=== PATIENT | female | born 1950 | race Asian ===

== ENCOUNTER 2025-07-29 15:45 | Emergency (ER) | payer OTHER ==
[~2025-07-29] VITALS: Ht 162.6 cm; Wt 97.8 kg
--- NOTE | 2025-07-29 16:17 | ECG ---
[facility] Test Date: 2025-07-29 Test Time: 15:57:51 Pat Name: ALEYDA REINA Department: Room: Gender: F Dye Blender: : 1950 Requested By: EMERGENCY EMERGENCY Order Number: [id number] Reading MD: Chau Pang Measurements Intervals [place] Rate: 90 P: 50 TN: 186 QRS: -39 QRSD: 89 T: 52 QT: 381 QTc: 467 Interpretive Statements Sinus rhythm Low voltage, precordial leads Probable left ventricular hypertrophy Baseline wander in lead(s) V4 Electronically Signed On 08-02-2025 10:54:38 PST by Chau Pang Please click the below link to view image of tracing.
--- NOTE | 2025-07-29 16:38 | ED.PDOC ---
History of present illness HPI Comments This is a 74 year old female BIB grandson presenting to the ED with chief complaint of hyperglycemia. Grandson reports patient's glucometer read "High" when used today at home, showing 507 in triage. Grandbeto relays that the patient's blood glucose has been running higher lately with yesterday's level being in the 300s. Patient states she is currently taking Glipizide and another oral diabetes medication, however, she had also been prescribed Insulin by her doctor that she has not taken due to not having any subcutaneous needles to use it. Patient notes she has had an unrelated cough for the past 2 weeks as well. Patient denies any SOB, chest pain, abdominal pain, nausea, vomiting, diarrhea, headache, or dizziness. Chief Complaint: Hyperglycemia Time Seen by MD: 16:35 History of present illness: Nurses Notes, Medications, Allergies Allergies: Coded Allergies: Lisinopril (Verified Allergy, Unknown, 07/29/25) Information Source: Patient, Relative (GrandChild) Mode of Arrival: Ambulatory Timing: Days Duration: Since onset Prehospital treatment: None [place]: None History of: Diabetes, Insulin use, Oral hypoglycemic use Past Medical History PAST MEDICAL HISTORY: DM, HTN Surgical History: Denies all surgeries JEWELRY SALESPERSON History: Denies all JEWELRY SALESPERSON Hx Family History Family History: Reviewed,noncontributory to illness Social History Smoker: Non-Smoker Alcohol: Denies ETOH Use Drugs: Denies Drug Use Lives In: Home Constitutional: denies: chills, diaphoresis, fatigue, fever, malaise, sweats, weakness, others EENTM: denies: blurred vision, double vision, ear bleeding, ear discharge, ear drainage, ear pain, ear ringing, eye pain, eye redness, hearing loss, mouth pain, mouth swelling, nasal discharge, nose bleeding, nose congestion, nose pain, photophobia, tearing, throat pain, throat swelling, voice changes, others Respiratory: reports: cough; denies: hemoptysis, orthopnea, SOB at rest, shortness of breath, SOB with excertion, stridor, wheezing, others Cardiovascular: denies: chest pain, dizzy spells, diaphoresis, Dyspnea on exert ion, edema, irregular heart beat, left arm pain, lightheadedness, palpitations, PND, syncope, others Gastrointestinal: denies: abdomen distended, abdominal pain, blood streaked bowels, constipated, diarrhea, dysphagia, difficulty swallowing, hematemesis, melena, nausea, poor appetite, poor fluid intake, rectal bleeding, rectal pain, vomiting, others Genitourinary: denies: abnormal vagina bleeding, burning, dyspareunia, dysuria, flank pain, frequency, hematuria, incontinence, pain, , vagina discharge, urgency, others Neurological: denies: dizziness, fainting, headache, left sided numbness, left sided weakness, numbness, paresthesia, pre-existing deficit, right sided numbness, right sided weakness, seizure, speech problems, tingling, tremors, weakness, others Musculoskeletal: denies: back pain, gout, joint pain, joint swelling, muscle pain, muscle stiffness, neck pain, others Integumetry: denies: bruises, change in color, change in hair/nails, dryness, laceration, lesions, lumps, rash, wounds, others Allergic/Immunocompromised: denies: Difficulty Healing, Frequent Infections, Hives, Itching, others Hematologic/Lymphatic: denies: anemia, blood clots, easy bleeding, easy bruising, swollen glands, others Endocrine: denies: excessive hunger, excessive sweating, excessive thirst, excessive urination, flushing, intolerance to cold, intolerance to heat, unexplained weight gain, unexplained weight loss, others Psychiatric: denies: anxiety, bipolar disorder, depression, hopeless, panic disorder, schizophrenia, sleepless, suicidal, others All Other Systems: Reviewed and Negative Physical Exam General Appearance: No Apparent Distress, Normal HEENT: Normal ENT Inspection, Pharynx Normal, TMs Normal Neck: Full Range of Motion, Non-Tender, Normal, Normal Inspection Respiratory: Chest Non-Tender, Lungs Clear, No Accessory Muscle Use, No Respiratory Distress, Normal Breath Sounds, Other (Frequent cough noted) Cardiovascular: No Edema, No JVD, No Murmur, No Gallop, Normal Peripheral Pulses, Regular Rate/Rhythm Breast Exam: Deferred Gastrointestinal: No Organomegaly, Non Tender, No Pulsatile Mass, Normal Bowel Sounds, Soft Genitalia: Deferred Pelvic: Deferred Rectal: Deferred Extremities: No calf tenderness, Normal capillary refill, Normal inspection, Normal range of motion, Non-tender, No pedal edema Musculoskeletal : Apperance: Normal Neurologic: Alert, third loader II-XII nml as Tested, No Motor Deficits, Normal Affect, Normal Mood, No Sensory Deficits Cerebellar Function: Normal Reflexes: Normal Skin: Dry, Normal Color, Warm Lymphatic: No Adenopathy Was a procedure done? Was a procedure done?: No Differential Diagnosis (DM) Differential Diagnosis: Hyperglycemia, Other (Pneumonia vs upper respiratory tract infection) X-Ray, Labs, Meds, VS Vital Signs Date Time Temp Pulse Resp B/P (MAP) Pulse Ox O2 Delivery O2 Flow Rate FiO2 07/29/25 17:53 97 Room Air* 0 21 07/29/25 17:46 86 07/29/25 17:44 98.1 84 17 119/60 (79) 97 98.1 07/29/25 15:57 90 07/29/25 15:47 97.8 86 16 102/54 99 97.8 Lab Test 07/29/25 18:55 07/29/25 18:18 07/29/25 17:09 07/29/25 16:56 Range/Units POC Glucose 323 H 70-106 mg/dl Lactic Acid Level 1.9 0.4-2.0 mmol/L White Blood Count 8.6 4.4-10.8 10^3/uL Red Blood Count 3.98 L 4.0-5.20 10^6/uL Hemoglobin 9.6 L 12.2-16.2 g/dL Hematocrit 30.4 L 36.0-46.0 % Mean Corpuscular Volume 76.3 L 80.0-100.0 fL Mean Corpuscular Hemoglobin 24.1 L 28.0-32.0 pg Mean Corpuscular Hemoglobin Concent 31.6 L 32.0-36.0 g/dL Red Cell Distribution Width 18.0 H 11.8-14.3 % Platelet Count 336 140-450 10^3/uL Mean Platelet Volume 7.8 6.9-10.8 fL Neutrophils (%) (Auto) 70.8 37.0-80.0 % Lymphocytes (%) (Auto) 18.1 10.0-50.0 % Monocytes (%) (Auto) 6.2 0.0-12.0 % Eosinophils (%) (Auto) 4.3 0.0-7.0 % Basophils (%) (Auto) 0.6 0.0-2.0 % Neutrophils # (Auto) 6.1 1.6-8.6 10 ^3/uL Lymphocytes # (Auto) 1.6 0.4-5.4 10 ^3/uL Monocytes # (Auto) 0.5 0-1.3 10 ^3/uL Eosinophils # (Auto) 0.4 0-0.8 10 ^3/uL Basophils # (Auto) 0.1 0-0.2 10 ^3/uL Nucleated Red Blood Cells 0.0 % Sodium Level 136 136-145 mmol/L Potassium Level 4.5 3.5-5.1 mmol/L Chloride Level 99 98-107 mmol/L Carbon Dioxide Level 26 20-31 mmol/L Anion Gap 11 5-15 Blood Urea Nitrogen 37 H 9-23 mg/dL Creatinine 2.30 H 0.550-1.02 mg/dL Glomerular Filtration Rate Calc 21 >90 mL/min BUN/Creatinine Ratio 16.1 10.0-20.0 Serum Glucose 442 *H 74-106 mg/dL Calcium Level 9.0 8.7-10.4 mg/dL Magnesium Level 2.5 1.6-2.6 mg/dL Beta-Hydroxybutyric Acid 0.158 < 0.4 mmol/L Blood Gas Specimen Type Venous Blood Gas Sample Site Vbg - n/a Blood Gas Patient Temperature 37.0 Arterial Blood Date Drawn [id number] [place] Test N/a Venous Blood pH 7.340 7.320-7.430 Venous Blood pCO2 at Patient Temp 51.4 38.0-54.0 mmHg Venous Blood pO2 at Patient Temp < 36.5 23.0-48.0 mmHg Venous Blood HCO3 27.1 22.0-29.0 mmol/L Venous Blood Base Excess 0.4 -2.0-3.0 mmol/L Blood Gas Modality Room air FiO2 % 21.0 Test 07/29/25 16:10 07/29/25 16:08 Range/Units POC Glucose 459 *H 507 *H 70-106 mg/dl Current Medications Medications (Trade) Dose Ordered Sig/Ernie Route Start Time Stop Time Status Last Admin Sodium Chloride 1,000 ml @ 1,000 mls/hr Q1H ONCE IV 07/29/25 16:45 07/29/25 17:44 DC 07/29/25 17:42 Insulin Human Regular (InsuLIN R) 10 units ONCE ONCE SC 07/29/25 16:45 07/29/25 16:46 DC 07/29/25 17:40 [place] [id number] Ph: [phone] DIAGNOSTIC IMAGING Diagnostic Imaging Report : [id number] Signed PATIENT: ALEYDA REINA ACCT: [id number] UNIT: [id number] : 1950 LOC: ER ROOM / BED: / AGE / SEX: 74 / F ADM STATUS: REG ER SERVICE 1641 ORDERING PHYSICIAN: LAKESHIA JOINER MD PROCEDURE(s): CXR1 - CHEST XRAY 1 VIEW REASON: cough ORDER NUMBER(s): [id number], ACCESSION NUMBER(s): [id number] CHEST RADIOGRAPH Indication: cough Technique: Single frontal view of the chest was obtained Comparison: None FINDINGS: Lines and Tubes: None Lungs: Bilateral perihilar peribronchial thickening. There appears to be extension of the findings is into the right lower lung field medially. Findings suggest bronchitis. Pleura: No effusion. No pneumothorax. Cardiomediastinal contours: Unremarkable Bones: No acute osseous abnormality. IMPRESSION: 1. Bilateral perihilar peribronchial thickening. 2. Possible developing right lower lobe infiltrate medially. There are no prior studies for comparison to exclude chronic disease. ATED BY: ZEN AGUILAR Jr., DO DICTATED DATE/TIME: 07/29/251720 SIGNED BY: ZEN AGUILAR Jr., SIGNED DATE/TIME: 07/29/251720 CC: Images Reviewed?: Images reviewed and evaluated by me Time of 1ST Reevaluation: 17:35 Reevaluation 1ST: Improved Patient Education/Counseling: Diagnosis, Treatment Family Education/Counseling: Diagnosis, Treatment SEPSIS Sepsis Screen Date sepsis recognized/suspect: Jul 29, 2025 Time Sepsis recognized/suspect: 1547 Recent Procedure: No On Antibiotic Therapy: No Respiratory Rate >20: No Heart Rate >90: No Temp<36 C (96.8 F) or >38.3 C: No SBP <90 or MAP <65 mmHG: No New Acute Mental Status Change: No Is the patient on CPAP, BIPAP,: No Physician Orders Venous Blood Gas (07/29/25 16:41) Chest Xray 1 View (07/29/25 16:41) Blood Culture (07/29/25 17:41) Vital Signs Date Time Temp Pulse Resp B/P (MAP) Pulse Ox O2 Delivery O2 Flow Rate FiO2 07/29/25 17:53 97 Room Air* 0 21 07/29/25 17:46 86 07/29/25 17:44 98.1 84 17 119/60 (79) 97 98.1 07/29/25 15:57 90 07/29/25 15:47 97.8 86 16 102/54 99 97.8 Laboratory Tests Test 07/29/25 17:09 07/29/25 18:18 White Blood Count 8.6 10^3/uL (4.4-10.8) Lactic Acid Level 1.9 mmol/L (0.4-2.0) Medications Medications Dose Ordered Sig/Ernie Route Start Time Stop Time Status Last Admin Dose Admin Insulin Human Regular 10 units ONCE ONCE SC 07/29/25 16:45 07/29/25 16:46 DC 07/29/25 17:40 Sodium Chloride 1,000 ml @ 1,000 mls/hr Q1H ONCE IV 07/29/25 16:45 07/29/25 17:44 DC 07/29/25 17:42 Departure 1 Departure Time of Disposition: 20:55 (74-year-old female presenting for evaluation of uncontrolled glucose over the past several days. Patient reports compliance with her oral medications, however, was prescribed insulin which she has not been taking. Suspect likely hyperglycemia related to medication noncompliance. Given the critical hyperglycemia upon arrival, greater than 500 this was concerning for possible DKA. However, venous blood gas shows pH with no significant acidosis, string ketones are negative and patient's bicarb is normal, does not seem consistent with DKA. Patient was given 1 L normal saline IV fluid bolus, given subcutaneous insulin for hyperglycemia with improvement of glucose. Patient also with reports of frequent cough over the past couple of weeks. Chest x-ray was ordered which shows that patient has a possible right lower lobe pneumonia. Patient does not appear septic. Was given IV ceftriaxone and IV azithromycin for community-acquired pneumonia. Discussed the case for possible admission with Dr. Lassiter. Given that the patient appears well, nontoxic and is not hypoxic he believes that she is suitable for discharge home. He will further manage her hyperglycemia, he will set up for diabetes management education at home. He will discharge her with a course of antibiotics for outpatient management.) Impression: Primary Impression: Diabetes mellitus with hyperglycemia Additional Impressions: Community acquired pneumonia Right lower lobe pneumonia Disposition: HOME / SELF CARE / HOMELESS Condition: Stable Discharged With: Self Critical Care Note Critical Care Time?: No Stability Stability form required: No Heart Score Heart Score: Heart Score Response (Comments) Value History N/A 0 EKG N/A 0 Age N/A 0 Risk Factors N/A 0 Troponin N/A 0 Total 0 I personally scribed for LAKESHIA JOINER MD ([email or web address]) on 07/29/25 at 16:38. Electronically submitted by Wade Monroy [email or web address]). I personally scribed for LAKESHIA JOINER MD ([email or web address]) on 07/29/25 at 17:41. Electronically submitted by Wade Monroy [email or web address]). LAKESHIA JOINER MD Jul 29, 2025 16:38
[2025-07-29 17:21] LABS: Hematocrit 30.4 % (36.0-46.0); Hemoglobin 9.6 g/dL (12.2-16.2); Mean Corpuscular Hemoglobin 24.1 pg (28.0-32.0); Mean Corpuscular Volume 76.3 fL (80.0-100.0); Nucleated Red Blood Cells % 0.0 %
--- NOTE | 2025-07-29 17:24 | DVH ---
CHEST RADIOGRAPH Indication: cough Technique: Single frontal view of the chest was obtained Comparison: None FINDINGS: Lines and Tubes: None Lungs: Bilateral perihilar peribronchial thickening. There appears to be extension of the findings is into the right lower lung field medially. Findings suggest bronchitis. Pleura: No effusion. No pneumothorax. Cardiomediastinal contours: Unremarkable Bones: No acute osseous abnormality. IMPRESSION: 1. Bilateral perihilar peribronchial thickening. 2. Possible developing right lower lobe infiltrate medially. There are no prior studies for comparison to exclude chronic disease.
[2025-07-29 17:26] LABS: Chloride 99 mmol/L (98-107); Potassium 4.5 mmol/L (3.5-5.1)
[2025-07-29 17:27] LABS: Anion Gap 11 (5-15); Calcium 9.0 mg/dL (8.7-10.4); Carbon Dioxide 26 mmol/L (20-31); Sodium 136 mmol/L (136-145)
[2025-07-29 17:32] LABS: BUN/Creatinine Ratio 16.1 (10.0-20.0)
[2025-07-29 17:33] LABS: Magnesium 2.5 mg/dL (1.6-2.6)
[2025-07-29 17:35] LABS: Blood Urea Nitrogen 37 mg/dL (9-23)
[2025-07-29 17:36] LABS: Glucose 442 mg/dL (74-106)
[2025-07-29] MEDS: InsuLIN REG 1unit/0.01ml Soln (100units/ml) SC ONE (17:40)
[2025-07-29] MEDS: SODIUM CHLORIDE 0.9% 1,000 ML IV ONE (17:42)
[2025-07-29] MEDS ORDERED: DEXTROSE (50%) 50ML SYRG IV PRN (21:15)
[2025-07-30] MEDS: SODIUM CHLORIDE 0.9% 1,000 ML IV ONE (00:46)
[2025-07-30] MEDS: AZITHROMYCIN 500MG/ 250ML 250 ML IV ONE (00:46)
[2025-07-30 01:00] VITALS: TEMP 98
[2025-07-30] MEDS: INSULIN LANTUS (GLARGINE) 1 /0.01ml (100units/ml) SC ONE (01:08)
[2025-07-30] MEDS: InsuLIN REG 1unit/0.01ml Soln (100units/ml) SC SCH (01:08)
[2025-07-30] MEDS: ACCU-CHEK COMFORT CURVE STRIP VI SCH (01:08)
[2025-07-30 02:00] VITALS: BP 139/54; PULSE 84; RESP 18; O2SAT 97
--- NOTE | 2025-07-31 23:04 | DVHINCON2 ---
DATE OF CONSULTATION: 07/29/2025 This is a late note entry on 07/31/2025. CHIEF COMPLAINT: Coming in for high blood sugars. HISTORY OF PRESENT ILLNESS: This is a 74-year-old female brought in by her grandson to the Emergency Room with a chief complaint of high blood sugars. The patient apparently has been having a cough and phlegm for about 2-3 weeks now. She says that the cough has been drying out over the last week and she has got minimal phlegm. She denies any fevers, chills, nausea, or vomiting. She has been using cough syrup at home, which she says has been increasing her blood sugars and that is why she has come in today for assessment. She denies any diarrhea, constipation, bloody or tarry stools, any chest pain, shortness of breath, or any dizziness. She does signify that she has some orthopnea symptoms, but otherwise denies any dysuria, urgency, or frequency of urination or dizziness. She does have some nocturia, but no urgency or frequency. The patient was also questioned about having a history of recent colonoscopy, which she says she has had one about a year to 2 ago that she believes was normal. PAST MEDICAL HISTORY: Diabetes mellitus type 2, chronic kidney disease stage 3B, hypertension, gout, hyperlipidemia, and chronic anemia. PAST SURGICAL HISTORY: The patient denies any prior surgeries. SOCIAL HISTORY: No tobacco. No alcohol. No illicit drugs. MEDICATIONS AT HOME: Per medical reconciliation. MEDICATION ALLERGIES: No known drug allergies. REVIEW OF SYSTEMS: A 10-point review of systems was covered with the patient and was negative with exception to what was present in the history of present illness. PHYSICAL EXAMINATION: VITAL SIGNS: Temperature of 97.8, pulse rate of 86, respiratory rate of 16, blood pressure of 102/54, pulse oximetry about 99% on room air. GENERAL: Seems to be alert and oriented x4. Not in acute distress. Female sitting up in a chair. HEENT: Normocephalic, atraumatic. Extraocular muscles were intact. Pupils are equally round and reactive to light and accommodation. Mucous membranes look dry. CARDIOVASCULAR: S1 and S2 positive. Regular rate and rhythm. No rubs, gallops, or murmurs. LUNGS: Clear to auscultation bilaterally. No wheezing, rhonchi or rales. ABDOMEN: Seems to be soft, nontender, and nondistended. Positive bowel sounds. No guarding, no rebound. EXTREMITIES: No lower extremity edema, clubbing, or cyanosis. No focal deficits. SKIN: The patient does have increased skin turgor pressure. NEUROLOGIC: Cranial nerve testing 2-12 seemed to be overall intact. LABORATORY WORKUP: The patient had a white count of 8.6, H and H of 9.6/30.4, platelet count of 336,000, sodium 136, potassium of 4.5, chloride 99, carbon dioxide of 26, anion gap of 11, BUN of 37, creatinine 2.30, serum glucose of 442, down to 323, down to 116, lactic acid 1.9, beta hydroxybutyric acid 0.158. Venous blood gas was also completed, showed a pH of 7.35, a pCO2 of 51.4, bicarb of 27.1. Blood cultures were also sent to labs, shows no growth after 24 hours. IMAGING: Chest x-ray shows bilateral peripheral peribronchial thickening, possible developing right lower lobe infiltrate medially. There are no prior studies for comparison to exclude chronic disease. DIAGNOSES: * Diabetes mellitus type 2 with hyperglycemia. * Dehydration. * TATE on CKD stage 3B. * Right lower lobe infiltrate. PLAN: The patient was seen in the Emergency Room. A flu assessment was completed of the patient. The patient is currently afebrile with no leukocytosis. The patient does have 2 to 3 weeks' worth of cough and phlegm and has been taking cough syrup at home. Overall, it seems to be resolving etiology as the patient's phlegm has decreased and almost cleared out. Despite this, the patient does have a chest imaging that shows a possible infiltrate in the right lower lobe consistent with community-acquired pneumonia. The patient did receive antibiotics in the ED with azithromycin and Rocephin and will be discharged on a 10-day course of double antibiotics with Augmentin and a Z-DEXTER. The patient additionally presenting with hyperglycemia without having ketosis. The patient did receive 10 units of insulin in the ED. In addition, I hydrated her with 1 liter of fluids and a total of 2 in the Emergency Room as well as 1 liter of IV fluids and I gave her an additional liter of fluids with 9 units of insulin glargine subcutaneously for basal control of her hyperglycemia. She is aware of her home medications. She has been initiated on insulin, but has not started taking the prescription despite receiving it over 2 weeks ago. Apparently, her medications have been switched out where her metformin was discontinued and the patient was started on insulin at that time; however, the patient has been hesitant to use it. The patient says that she is supposed to be using 20 units at nighttime, but has not. The patient will be giving recommendations to start using only 10 units at nighttime and to monitor her blood sugars twice a day and to present it to her primary care provider. Additionally, the patient does seem to have a slight acute kidney injury likely due to dehydration from osmotic diuresis from her hyperglycemia. The patient, again, did receive IV fluid hydration. Will be told to go to urgent care within 2 to 3 days with repeat basic metabolic panel. The patient is to have repeat chest x-ray within 6 weeks for resolution of the right lower lobe infiltrate. Diabetic management to be arranged through [facility]. The patient again has been given verbal orders to start Basaglar insulin only 10 units at nighttime versus her 20 units that was ordered by her primary care provider. The patient is to return to the Emergency Room in case of any fevers, chills, chest pain, shortness of breath, nausea, vomiting, or any other concerns and/or questions. Hector Romano MD LM/DEMETRIO TID: [id number] RECEIPT: [id number] MTDMal
== END 2025-07-30 04:06 | disposition home or self-care (01) ==
LOC: ER 15:45
DX: E11.65 Type 2 diabetes mellitus with hyperglycemia (principal); J18.9 Pneumonia, unspecified organism; I10 Essential (primary) hypertension; E78.5 Hyperlipidemia, unspecified; Z88.8 Allergy status to other drugs, medicaments and biological substances; Z91.148 Patient's other noncompliance with medication regimen for other reason
CPT/HCPCS: 36415; 36600; 71045; 80048; 82010; 82805; 82947; 83605; 83735; 85025; 87040; 93005; 96361; 96365; 96366; 96368; 99285; J0456; J0696; J1815; J7030; 82962